=== PATIENT | female | born 1945 | race Caucasian/White ===

== ENCOUNTER → 2016-04-03 | Outpatient (CLI) | payer OTHER ==
--- NOTE | 2016-04-03 15:32 | MA ---
Screening Digital Mammogram With iCAD Analysis Clinical Indications: Routine screening. A grandmother was diagnosed with breast cancer in her 60s. Technique: Standard cephalocaudal and mediolateral oblique projections were obtained. This examinatio n was processed by the iCAD computer aided detection system. Comparison: March 2015, March 2014, March 2013, March 2012, March 2011, March 2010, Decem 2008. Breast density: Type B; Scattered fibroglandular densities. Findings: CAD was reviewed. No masses, suspicious calcifications or other signs of malignancy are id entified. There has been no significant change in the appearance of either breast. Impression: Negative mammogram. BI-RADS 1. Recommendation: Routine mammographic screening in one year as long as physical examination is negativ [facility] will send a result letter to the patient. Negative mammography should not preclude additional workup of a clinically suspicious finding. The patient's information is entered into a reminder system with a target due date for her next mammo gram.
== END ==
LOC: FIMAGING 13:57
DX: Z12.31 Encounter for screening mammogram for malignant neoplasm of breast (principal); Z80.3 Family history of malignant neoplasm of breast
CPT/HCPCS: G0202

== ENCOUNTER 2016-11-07 15:50 | Observation (INO) | payer OTHER ==
--- NOTE | 2016-11-07 16:45 | CPEKG ---
Heart Rate: 77 RR Interval: 779 P-R Interval: 156 QRSD Interval: 78 QT Interval: 392 QTC Interval: 444 P [place]: 73 QRS [place]: 36 T Wave [place]: 43 EKG Severity - NORMAL ECG - EKG Impression: SINUS RHYTHM Electronically Signed By: Saw Roy 07-Nov-2016 16:46:19
--- NOTE | 2016-11-07 16:52 | EDPHY ---
H & P Smoking Status: Never smoked Time Seen by Provider: 11/07/16 16:41 HPI/ROS: CHIEF COMPLAINT: Syncope, cough HISTORY OF PRESENT ILLNESS: 71-year-old female presents to the emergency department by private vehicle after having 2 syncopal episodes earlier this morning. The patient states that she traveled back from [place] and got back late Sunday night. She states that she woke up in the middle of the night coughing. She has been coughing for the last several nights. She states this morning she felt like the cough was improving although when she woke up this morning she was feeling very weak like she needed to eat something. She was in the kitchen boiling ache and she sat down on the chair and then had a syncopal episode. She woke herself up off the ground and sat back in the chair and then apparently had another syncopal episode and when she woke up on the ground the 2nd time, she was incontinent of stool. She has had 2 or 3 other bowel movements since that time. No diarrhea. No fevers or chills. She states that she has had bad chest cold before although she does not think she has ever had pneumonia. She denies calf pain or swelling. No history of previous pulmonary embolism. She has a history of hypertension and takes lisinopril although has not taken this this morning. She denies abdominal cramping. She denies any chest pain. Denies feeling short of breath. REVIEW OF SYSTEMS: Constitutional: No fever, no chills. Eyes: No double or blurry vision. ENT: No sore throat. Respiratory: Cough as above. no shortness of breath. Cardiac: No chest pain. Gastrointestinal: No abdominal pain, vomiting or diarrhea. Genitourinary: No dysuria. Musculoskeletal: No neck or back pain. Skin: No rashes. Neurological: No headache. (Shirley Julien) Past Medical/Surgical History: Hypertension (Shirley Julien) Social History: and lives in [place] (Shirley Julien) Physical Exam: General Appearance: Alert, no distress. 94% on room air. Afebrile. No apparent distress. Mentating normally and answering questions appropriately. Eyes: Pupils equal and round. Extraocular motions are all intact. ENT: Mouth: Mucous membranes moist. No tongue abrasion or laceration. Respiratory: No wheezing, rhonchi, or rales, lungs are clear to auscultation. Cardiovascular: Regular rate and rhythm. Gastrointestinal: Abdomen is soft and nontender, no masses, no rebound or guarding, bowel sounds normal. Neurological: Alert and oriented x 3, cranial nerves II through XII grossly intact Skin: Warm and dry, no rashes. Musculoskeletal: Nontender to palpate along the cervical, thoracic or lumbar spine. Neck is supple. Extremities: Full range of motion and no peripheral edema. Psychiatric: Patient is oriented X 3, there is no agitation. (Shirley Julien) Constitutional: Initial Vital Signs Temperature (C) 36.7 C 11/07/16 16:06 Heart Rate 84 11/07/16 16:06 Respiratory Rate 20 11/07/16 16:06 Blood Pressure 147/98 H 11/07/16 16:06 O2 Sat (%) 94 11/07/16 16:06 O2 Delivery Mode Room Air Allergies/Adverse Reactions: No Known Allergies Allergy (Verified 07/29/11 10:21) Home Medications: Medication Instructions Recorded Lisinopril [Zestril 20 mg (*)] 20 mg PO DAILY 11/07/16 Multivitamins [Multivitamin (*)] 1 each PO DAILY 11/07/16 amLODIPine BESYLATE [Norvasc 2.5 2.5 mg PO DAILY 11/07/16 mg (*)] Medical Decision Making - Diagnostics Imaging: Discussed imaging studies w/ call center recruiter Radiologist, I viewed and interpreted images myself - Diagnostics EKG Interpretation: 12-lead EKG interpreted by me; official reading is in trace master. My interpretation is sinus rhythm rate 77 with no acute ischemic changes. (Saw Roy) Imaging Results: Imaging Impressions Chest X-Ray 11/07/16 16:47 Impression: Negative chest. Chest/Thorax CTA 11/07/16 17:58 Impression: 1. Negative CT examination of the chest for acute pulmonary thromboembolic disease. 2. Mild lymph node prominence in the hilar regions bilaterally and subcarinal region. Findings are nonspecific. 3. Mild dependent atelectasis. Results called to. Shirley Bautista PA-C at 6:50 PM at the time of the interpretation. ED Course/Re-evaluation: 71-year-old female presents to the emergency department after she had 2 syncopal episodes and then was incontinent of stool. She had recent travel to [place]. She has no pain or swelling in her calves. She had elevated D-dimer 0.98. CT pulmonary angiogram reveals no evidence of pulmonary embolism. EKG reveals normal sinus rhythm. Troponin was negative. Given that she is 71 years old, lives alone, and had 2 syncopal episodes as well as was incontinent of stool, she will be admitted to the hospitalist for observation on telemetry floor. Case was discussed with Dr. Saw Roy, secondary supervising physician, who did not directly evaluate the patient but agrees with treatment and plan. (Shirley Julien) Differential Diagnosis: Including but not limited to pulmonary embolism, pneumonia, influenza, viral upper respiratory infection, cardial infarction, dehydration, electrolyte abnormality, vasovagal syncope, arrhythmia, anemia (Shirley Julien) - Data Points Laboratory Results: Laboratory Results 11/07/16 16:55 11/07/16 16:55 11/07/16 11/07/16 11/07/16 16:55 16:55 16:55 WBC 2.51 10^3/uL L 10^3/uL (3.80-9.50) RBC 4.69 10^6/uL 10^6/uL (4.18-5.33) Hgb 14.7 g/dL g/dL (12.6-16.3) Hct 43.8 % % (38.0-47.0) MCV 93.4 fL fL (81.5-99.8) MCH 31.3 pg pg (27.9-34.1) MCHC 33.6 g/dL g/dL (32.4-36.7) RDW 12.8 % % (11.5-15.2) Plt Count 157 10^3/uL 10^3/uL (150-400) MPV 10.5 fL fL (8.7-11.7) Neut % (Auto) 60.2 % % (39.3-74.2) Lymph % (Auto) 24.3 % % (15.0-45.0) [place] % (Auto) 13.9 % H % (4.5-13.0) Eos % (Auto) 0.4 % L % (0.6-7.6) Baso % (Auto) 0.8 % % (0.3-1.7) Nucleat RBC Rel Count 0.0 % % (0.0-0.2) Absolute Neuts (auto) 1.51 10^3/uL L 10^3/uL (1.70-6.50) Absolute Lymphs (auto) 0.61 10^3/uL L 10^3/uL (1.00-3.00) Absolute Monos (auto) 0.35 10^3/uL 10^3/uL (0.30-0.80) Absolute Eos (auto) 0.01 10^3/uL L 10^3/uL (0.03-0.40) Absolute Basos (auto) 0.02 10^3/uL 10^3/uL (0.02-0.10) Absolute Nucleated RBC 0.00 10^3/uL 10^3/uL (0-0.01) Immature Gran % 0.4 % % (0.0-1.1) Immature Gran # 0.01 10^3/uL 10^3/uL (0.00-0.10) D-Dimer 0.98 ug/mLFEU H ug/mLFEU (0.00-0.50) Sodium 131 mEq/L L mEq/L (134-144) Potassium 4.2 mEq/L mEq/L (3.5-5.2) Chloride 94 mEq/L L mEq/L (97-110) Carbon Dioxide 25 mEq/l mEq/l (22-31) Anion Gap 12 mEq/L mEq/L (8-16) BUN 15 mg/dL mg/dL (7-23) Creatinine 0.8 mg/dL mg/dL (0.6-1.0) Estimated GFR > 60 Glucose 92 mg/dL mg/dL (70-100) Calcium 9.4 mg/dL mg/dL (8.5-10.4) Troponin I < 0.012 ng/mL ng/mL (0.000-0.034) Medications Given: Guaifenesin (Mucinex) 600 mg PO BID TAHIRA Stop: 05/06/17 23:44 Last Admin: 11/08/16 00:00 Dose: 600 mg Sodium Chloride (Ns) 1,000 mls @ 125 mls/hr IV CONT TAHIRA Stop: 11/08/16 05:44 Last Admin: 11/07/16 23:29 Dose: Not Given Discontinued Medications Sodium Chloride (Ns) 1,000 mls @ 0 mls/hr IV ONCE ONE PRN Reason: Wide Open Stop: 11/07/16 18:07 Last Admin: 11/07/16 18:13 Dose: 1,000 mls Departure - Departure Disposition: [facility] Inpatient Acute Clinical Impression: Syncope Qualifiers: Syncope type: unspecified Qualified Code(s): R55 - Syncope and collapse Condition: Good
[2016-11-07 17:12] LABS: % IMMATURE GRANULYOCYTES 0.4 % (0.0-1.1); ABSOLUTE IMMATURE GRANULOCYTES 0.01 10^3/uL (0.00-0.10); ADD DIFF? NO; ADD MORPH? NO; ADD SCAN? NO; ATYPICAL LYMPHOCYTE FLAG 0 (0-99); FRAGMENT RBC FLAG 0 (0-99); HEMATOCRIT 43.8 % (38.0-47.0); HEMOGLOBIN 14.7 g/dL (12.6-16.3); LEFT SHIFT FLG 0 (0-99); LIPEMIA HEMOLYSIS FLAG 80 (0-99); MEAN CELL HEMOGLOBIN 31.3 pg (27.9-34.1); MEAN CELL HEMOGLOBIN CONCENTR. 33.6 g/dL (32.4-36.7); MEAN CELL VOLUME 93.4 fL (81.5-99.8); MEAN PLATELET VOLUME 10.5 fL (8.7-11.7); PLATELET CLUMPS FLAG 0 (0-99); PLATELET COUNT 157 10^3/uL (150-400); RED BLOOD CELL COUNT 4.69 10^6/uL (4.18-5.33); RED CELL DISTRIBUTION WIDTH 12.8 % (11.5-15.2)
[2016-11-07 17:17] LABS: ANION GAP 12 mEq/L (8-16); CALCIUM 9.4 mg/dL (8.5-10.4); CARBON DIOXIDE 25 mEq/l (22-31); CHLORIDE 94 mEq/L (97-110); CREATININE 0.8 mg/dL (0.6-1.0); GLOMERULAR FILTRATION RATE > 60; GLUCOSE 92 mg/dL (70-100); POTASSIUM 4.2 mEq/L (3.5-5.2); SODIUM 131 mEq/L (134-144)
[2016-11-07 17:28] LABS: TROPONIN I < 0.012 ng/mL (0.000-0.034)
[2016-11-07] MEDS ORDERED: NS 1,000 ML IV ONE (18:06)
[2016-11-07] MEDS ORDERED: IOPAMIDOL (ISOVUE 370) 100 ML BTL IV ONE (18:15)
[2016-11-07] MEDS ORDERED: ONDANSETRON DISINTEGRATING 4 MG TAB PO PRN (21:37)
[2016-11-07] MEDS ORDERED: ACETAMINOPHEN 325 MG TAB PO PRN (21:37)
[2016-11-07] MEDS ORDERED: ONDANSETRON 4 MG/2 ML VIAL IVP PRN (21:37)
[2016-11-07] MEDS ORDERED: NS 1,000 ML IV SCH (21:45)
--- NOTE | 2016-11-07 22:14 | GHP ---
[f rep st] HISTORY AND PHYSICAL DATE OF ADMISSION: 11/07/2016 HISTORY OF PRESENT ILLNESS: The patient is a 71-year-old female with a history of hypertension, irr itable bowel syndrome, presents with a syncopal episode. She was recently hiking in [place] for a nu mber of days. Since returning 3 days prior to admission, developed a head cold and upper respirator y infection with cough, sputum. It sounds like her p.o. intake has been poor. Today she was just feeling really weak and tired and went to make herself an egg and a glass of milk and then she sat down at the table and had a syncopa l episode. She denies antecedent chest pain, shortness of breath, palpitations. She has good exert ional tolerance including recent multiple long hikes in [place] over a number of days. She has no family history of sudden , no known cardiac history other than hypertension, and no previous episodes of syncope. She had an episode of fecal incontinence during her 2nd syncopal epis ode. REVIEW OF SYSTEMS: Complete 10-point review of systems conducted, negative except as noted in the H PI. PAST MEDICAL HISTORY: Notable for irritable bowel syndrome and hypertension. ALLERGIES: No known drug allergies. HOME MEDICATIONS: Amlodipine, lisinopril, multivitamins. SOCIAL HISTORY: No tobacco, minimal alcohol. Recent travel. FAMILY HISTORY: As in the HPI, no sudden cardiac . No real heart history. Multiple cancers. PHYSICAL EXAMINATION: VITAL SIGNS: Temp 37.1, blood pressure 132/82, pulse 72, breathing 18 times a minute, 95% on room air. GENERAL: No acute distress. HEENT: Sclerae anicteric. Oropharynx marbella ar. Mucous membranes moist. NECK: Supple without lymphadenopathy or JVD. LUNGS: Clear to auscul tation bilaterally. HEART: S1, S2. ABDOMEN: Soft, nontender, nondistended. LOWER EXTREMITIES: Without edema. Calves nontender. SKIN: Without rash. NEUROLOGIC: Nonfocal. LABORATORY: Sodium 131, potassium 4.2, chloride 94, bicarb 25, BUN 15, creatinine 0.8. Troponin le ss than 0.012. D-dimer high at 0.98. White count 2.5, hematocrit 43, platelets are 157,000. She h ad a chest x-ray, interpreted by me, shows no acute cardiopulmonary disease. EKG shows sinus at 77 with normal axis and intervals. No ST or T-wave changes. CT of the chest shows no pulmonary emboli sm. Mildly prominent hilar lymph nodes in the subcarinal region and in the hilar regions. I discus sed the case with RAFIQ Brown in the emergency department. ASSESSMENT/PLAN: A 71-year-old female who presents with syncope. 1. Syncope. I suspect it may be orthostatic in nature. Although the patient has really no signs o f significant volume depletion. Her EKG is nonischemic. She had negative cardiac markers and no ev idence of pulmonary embolism. I will follow her on telemetry, cycle troponins and check an echocard iogram in the morning. 2. Hyponatremia, mild. We will follow. 3. Lymphadenopathy in the chest. This is mild in the setting of leukopenia, is consistent with a v iral infection. 4. Prophylaxis. Pharmacologic prophylaxis indicated if in the hospital longer than 24 hours. DISPOSITION: Observation status. /[id number]/MODL
[2016-11-08] MEDS: guaiFENesin 600 MG TAB.ER PO SCH ×4 (02:30→09:49)
[2016-11-08] MEDS ORDERED: LISINOPRIL 20 MG TAB PO SCH (09:00)
[2016-11-08] MEDS ORDERED: MULTIVITAMINS 1 EACH TAB PO SCH (09:00)
[2016-11-08] MEDS ORDERED: NS 1,000 ML IV ONE (09:57)
[2016-11-08 12:00] VITALS: BP 140/91; PULSE 63; RESP 11; TEMP 97.6; O2SAT 95
--- NOTE | 2016-11-08 13:20 | ECHO ---
[id number] + + [address] : : [place] [address] : : [phone] + + Adult Echocardiographic Report + ---------+ :Name: RACHAEL RICHARDS Date: 11/08/2016 10:33 AM : : Hospital Admission Number: [id number] Britt weeks: 201: :: 1945 Gender: Female Height: 68 i n : :Age: 71 yrs Race: WH Weight: 136 lb : :Reason For Study: Syncope with no prodrome : : BSA: 1.7 met ers2 : + ---------+ MMode/2D Measurements & Calculations IVSd: 0.82 cm LVIDd: 4.4 cm FS: 40.9 % Ao root diam: LVPWd: 0.81 cm LVIDs: 2.6 cm EDV(Teich): 3.1 cm 90.1 ml LA dimension: ESV(Teich): 3.3 cm 25.3 ml EF(Teich): 71.9 % LVLd ap4: 7.4 cm SV(MOD-sp4): EDV(MOD-sp4): 44.0 ml 67.0 ml LVLs ap4: 5.9 cm ESV(MOD-sp4): 23.0 ml EF(MOD-sp4): 65.7 % Normal Measurement Values: + + :LVIDd (3.5-5.7cm) IVSd (0.6-1.1cm) LVPWd (0.6-1.1cm) Aortic Root (2.0-3.7cm)Left Atrium (1.5-4.0cm): :LV Vol(d) (76-115ml) LV Vol(s) (29-48ml) Ejec Fraction (50-65%)PV Danielito (0.6- 1.2m/s) TV Danielito (0.4-1.0m/s) : :MV E Danielito (0.8-1.0m/s)MV A Danielito (0.3-1.0m/s)LVOT Danielito (0.7-1.2m/s) Asc Ao Danielito ( 0.9-1.8m/s) : + + Doppler Measurements & Calculations MV E max danielito: 45.9 cm/sec Ao V2 max: 100.0 cm/sec TR max danielito: 190.0 cm/sec MV A max danielito: 50.8 cm/sec Ao max P.0 mmHg TR max P.4 mmHg MV E/A: 0.90 RAP systole: 5.0 mmHg RVSP(TR): 19.4 mmHg Left Ventricle The left ventricle is normal in size. There is normal left ventricular wall thickness. Left ventricular systolic function is normal. Ejection Fraction = 65-70%. No regional wall motion abnormalities noted. Right Ventricle The right ventricle is normal in size and function. Atria The left atrial size is normal. Right atrial size is normal. The interatrial septum is intact with no evidence for an atrial septal defect. Mitral Valve The mitral valve is normal in structure and function. There is no evidence of mitral valve prolapse. There is no mitral valve stenosis. There is trace mitral regurgitation. Tricuspid Valve Normal tricuspid valve. There is trace tricuspid regurgitation. Aortic Valve The aortic valve is trileaflet. The aortic valve opens well. There is mild aortic valve calcification. There is no aortic stenosis. Trace aortic regurgitation. Pulmonic Valve The pulmonic valve is normal in structure and function. trace to mild pulmonic valvular regurgitation. Great Vessels The aortic root is normal size. Pericardium/Pleural Trivial anterior pericardial effusion. Conclusion A complete two-dimensional transthoracic echocardiogram was performed (2D, M-mode, Doppler and color flow Doppler). Left ventricular systolic function is normal. Ejection Fraction = 65-70%. Normal wall motion. Mild aortic sclerosis. There is trace mitral regurgitation. There is trace tricuspid regurgitation. Trace aortic regurgitation. Trivial anterior pericardial effusion Final Reading Physician: Nia Hdez signed on 11/08/2016 01:18 PM Ordering Physician: Russell Kamara Performed By: Grace Faustin, HEMANTH
--- NOTE | 2016-11-08 15:52 | GDS ---
[f rep st] DISCHARGE SUMMARY DISCHARGE DIAGNOSES: 1. Syncope due to dehydration and probable anti-hypertensives. 2. Acute influenza A. 3. History of hypertension. HISTORY: This is a 71-year-old female, who had been sick for several days. She presented with synco pe. HOSPITAL COURSE: The patient was admitted and did have some hyponatremia, suggestive of dehydration, and her blood pressures were borderline low at times. She was given IV fluids, and she felt better the following day. We did send upper respiratory panel which was positive for influenza A. Since he r symptoms have been going on for 4 or 5 days, we opted for not treating with Tamiflu. She also had an echocardiogram, which was normal. Telemetry did not show any arrhythmias. She will be discharged home today. /[id number]/MODL
== END 2016-11-08 15:38 | disposition home or self-care (01) ==
LOC: F2W 20:32
PROVIDERS: ADMIT Internal Medicine; ATTEND Internal Medicine
PROC: 3E0337Z Introduction of Electrolytic and Water Balance Substance into Peripheral Vein, Percutaneous Approach (ICD-10-PCS; principal; 2016-11-07)
DX: R55 Syncope and collapse (principal); J10.1 Influenza due to other identified influenza virus with other respiratory manifestations; E87.1 Hypo-osmolality and hyponatremia; E86.0 Dehydration; I10 Essential (primary) hypertension; K58.9 Irritable bowel syndrome, unspecified
CPT/HCPCS: 71020; 71275; 93005; 93306; 96360; 99285; G0378; Q9967

== ENCOUNTER → 2017-04-23 | Outpatient (CLI) | payer OTHER | LOC: FIMAGING 14:28 | PROVIDERS: ATTEND Family Medicine | DX: Z12.31 Encounter for screening mammogram for malignant neoplasm of breast (principal); Z80.3 Family history of malignant neoplasm of breast; Z78.0 Asymptomatic menopausal state ==

== ENCOUNTER → 2018-04-26 | Outpatient (CLI) | payer OTHER | LOC: FIMAGING 14:03 | PROVIDERS: ATTEND Family Medicine | DX: Z12.31 Encounter for screening mammogram for malignant neoplasm of breast (principal); Z80.3 Family history of malignant neoplasm of breast ==